=== PATIENT | male | born 2000 | race Caucasian/White ===

== ENCOUNTER 2022-06-25 15:17 | Inpatient (IN) ==
[2022-06-25 15:57] LABS: ABS Lymphocytes 1.3 10^3/ul (1.0-4.8); ABS Monocytes 0.5 10^3/ul (0-0.8); ABS Neutrophils 2.3 10^3/ul (1.5-7.7); Eosinophil % 1.1 %; Hematocrit 45 % (42-52); Hemoglobin 15.5 g/dL (14.0-18.0); Lymphocyte % 31.7 %; Mean Corpuscular HGB Conc 35 g/dL (31-36); Mean Corpuscular Hemoglobin 31 pg (27-31); Mean Corpuscular Volume 91 fL (80-94); Mean Platelet Volume 7.4 fL (7.4-10.4); Nucleated Red Blood Cells % 0.1; Platelet Count 261 10^3/uL (150-450); Red Blood Count 4.97 10^6 /uL (4.18-5.48); Red Cell Distribution Width 13 % (10-15); White Blood Count 4.2 10^3/uL (3.5-10.8)
[2022-06-25 16:48] LABS: ALT 14 U/L (7-52); AST 17 U/L (13-39); Acetaminophen < 15 mcg/mL; Albumin/Globulin Ratio 2.1 (1-3); Alcohol, S < 13 mg/dL (<13); Alkaline Phosphatase 57 U/L (35-149); Anion Gap 7 mmol/L (2-11); Blood Urea Nitrogen 8 mg/dL (6-24); CO2 Carbon Dioxide 26 mmol/L (22-32); Calcium 9.9 mg/dL (8.6-10.3); Chloride 105 mmol/L (101-111); Creatinine, Serum 0.86 mg/dL (0.67-1.17); Globulin 2.4 g/dL (2-4); Glucose 89 mg/dL (70-100); Potassium 4.1 mmol/L (3.5-5.0); Salicylate < 2.50 mg/dL (<30); Sodium 138 mmol/L (135-145); Total Protein 7.4 g/dL (6.4-8.9); eGFR CKD-EPI 127.1 (>60)
[2022-06-25 17:02] LABS: TSH Ultra Thyroid Stim Horm 0.36 mcIU/mL (0.34-5.60)
[2022-06-25] MEDS ORDERED: Al Hydrox/Mg Hydrox/Simet LIQ 30 ML UDC PO PRN (22:11)
[2022-06-26] MEDS: Vitamin THERAPEUTIC TAB PO SCH (07:33)
[2022-06-26] MEDS ORDERED: Nicotine GUM 2MG FRUIT FLAVOR PO ONE (16:03)
[2022-06-26] MEDS: Nicotine GUM 2MG FRUIT FLAVOR PO PRN ×2 (16:05→19:12)
[2022-06-26] MEDS ORDERED: Thiamine 100 MG/ML 2 ml VIAL (200 mg) IM ONE (17:03)
[2022-06-27] MEDS: Multivitamins/Minerals TAB PO SCH (11:32)
[2022-06-27] MEDS: Nicotine GUM 2MG FRUIT FLAVOR PO PRN ×2 (11:32→17:35)
[2022-06-27] MEDS: Vitamin THERAPEUTIC TAB PO SCH (13:06)
[2022-06-27 20:32] VITALS: BP 140/76
[2022-06-28] MEDS: Vitamin THERAPEUTIC TAB PO SCH (10:27)
[2022-06-28] MEDS: Multivitamins/Minerals TAB PO SCH (10:28)
== END 2022-06-28 13:11 | disposition home or self-care (01) | DRG 754 ==
LOC: ED 15:17 → EDHOLD 21:41 → BSU 22:30
PROVIDERS: ADMIT Psychiatry & Neurology Psychiatry; ATTEND Psychiatry & Neurology Psychiatry